=== PATIENT | male | born 1945 | race American Indian/Alaskan Native ===

== ENCOUNTER 2017-09-23 07:37 | Outpatient (CLI) | payer OTHER, BC | END 2017-09-23 07:43 | disposition home or self-care (01) | LOC: NUCLEAR 07:37 | DX: M79.605 Pain in left leg (principal); I82.493 Acute embolism and thrombosis of other specified deep vein of lower extremity, bilateral ==

== ENCOUNTER 2017-09-26 07:49 | Outpatient (CLI) | payer OTHER, BC | END 2017-09-26 07:54 | disposition home or self-care (01) | LOC: NUCLEAR 07:49 | DX: M79.604 Pain in right leg (principal); I73.9 Peripheral vascular disease, unspecified ==